=== PATIENT | female | born 1965 | race Hispanic/Latino ===

== ENCOUNTER 2021-10-27 20:56 | Emergency (ER) | payer OTHER, SELFPAY ==
--- OUTSIDE RECORDS SUMMARY | 2021-10-27 20:59 | XMS REPORT | Continuity of Care Document ---
:1965 Author Organization [facility] t Address [address] [place] [address] Care Team Providers Name Role Phone [facility] Attending Clinician Unavailable Physician, Primary or Family Admitting Clinician Unavailabl e Payers Payer Name Policy Type Policy Number Effective Date Expiration Date S ource Problems This patient has no known problems. Allergies, Adverse Reactions, Alerts Allergy Allergy Status Severity Reaction(s) Onset Inactive Treating Comm ents Source Name Type Date Date Clinician No Known DA Active U 2020-0 [facility]04 [facility] 00:00: e 00 [facility] No Known DA Active U 2019-0 [facility] 06[facility]04 [facility] 00:00: e 00 [facility] No Known DA Active U 2018- [facility] All[facility]ie 06-01 [facility] 00:00: e 00 [facility] No Known DA Active U 2018-05 [facility] Allergie 06-01 [facility] 00:00: e 00 [facility] Medications This patient has no known medications. Procedures This patient has no known procedures. Encounters Start End Encounter Admission Attending Care Care Encounter Source Date/Time Date/Time Type Type Clinicians Facility Department ID 2019-06-15 [id number] 00:17:00 [facility] 2019-06-06 Inpatient KENDALL Hernandez [facility] [id number] [facility] 11:30:00 [facility] [id number] [facility] 2019-05-15 Inpatient [facility]ALLORY [facility] [id number] [facility] 00:04:00 [facility] 2019-07-03 2019-07-03 Outpatient MALLORY Hernandez [facility] [id number] [facility] 13:07:00 13:07:00 [facility] [id number] [facility] 2019-05-29 2019-05-29 Outpatient MALLORY Hernandez [facility] [id number] [facility] 12:32:00 12:32:00 [facility] [id number] [facility] 2019-04-15 2019-05-14 Outpatient MALLORY Hernandez [facility] [id number] [facility] 13:30:00 00:00:00 [facility] [id number] [facility] Results Test Description Test Time Test Comments Results Result [facility] e Comments - XR HAND 3 + V RT 2019-05-29 FAX: Y 14:46:00 Juan Hernandez MD [phone] [facility]: St: REG Name: [facility] [place] : 1965 Age/S: 53/F [address] Unit #: [id number] [facility] [address] Phys: Juan Hernandez MD Acct: [id number] Dis Date: Status: REG RCR PHONE #: [phone] Exam Date: 05/29/2019 1311 FAX #: Reason: FRCTURE LEFT METACARPAL EXAMS: CPT CODE: [id number] XR HAND 3 + [place] RT [id number] HISTORY: Fracture of the metacarpal. COMPARISON: X-ray from April 15, 2019. Location: [facility]. 3 views of the right hand: External fixator stabilizing the bases of the fourth and the fifth metacarpal bones. Fracture lines are not visible. Mildly narrowed intercarpal and carpometacarpal and radiocarpal joint spaces. No AVN of the lunate or the scaphoid bones. Carpal arcs are preserved. Narrowed DIP and the PIP joint spaces. IMPRESSION: External fixator stabilizing the base of the fourth and the fifth metacarpal bone with extension into the hamate bone and the base of the third metacarpal bone in good anatomic alignment. Fracture lines are not visible. Narrowed joint spaces. at 1448 Reported and signed by: Preet Rivera M.D. CC: Juan Hernandez MD Technologist: RT EMELINA(R) Trnscrd Date/Time/By: 05/29/2019 (5396) : By: [email or web address] Orig Print D/T: S: 05/29/2019 (3262) PAGE 1 Signed Report - XR HAND 3 + V RT 2019-04-15 FAX: Y 14:33:00 Juan Hernandez MD [phone] [place]: St: REG Name: [facility]ABIL [facility] [place] : 1965 Age/S: 53/F [address] Unit #: [id number] [facility] [address] Phys: Juan Hernandez MD Acct: [id number] Dis Date: Status: REG RCR PHONE #: [phone] Exam Date: 04/15/2019 1410 FAX #: Reason: RIGHT HAND FRACTURE EXAMS: CPT CODE: [id number] XR HAND 3 + V RT [id number] REASON FOR EXAM: RIGHT HAND FRACTURE EXAM ORDER DATE: 04/15/2019 1:54 PM Ordering M.Norm: Juan Hernandez MD PROCEDURE: - XR HAND 3 + V RT Comparison:None FINDINGS: Impression wires transfix the bases of the third through fifth metacarpals as well as the fifth metacarpal base to the hamate. No evidence of hardware failure is seen. The bones are appropriately aligned and no acute fracture is apparent. IMPRESSION: No acute fracture is evident. Bones are appropriately aligned. Diya wires as above without evidence of hardware loosening. Location: [facility] at 1433 Reported and signed by: Jono Parish MD CC: Juan Hernandez MD Technologist: RT Za(R) Trnscrd Date/Time/By: 04/15/2019 (3712) : By: [email or web address] Orig Print D/T: S: 04/15/2019 (3302) PAGE 1 Signed Report CBC W/AUTO DIFF 2019-04-01 21:42:00 Test Item Value Reference Range Interpretation Comme nts WHITE BLOOD CELL (test code = WBC) 8.8 K/mm3 4.5-12.5 N RED BLOOD CELL (test code = RBC) 3.82 mill/mm3 3.7-5.2 N HEMOGLOBIN (test code = HGB) 11.2 gram/dL 11.5-15.5 L HEMATOCRIT (test code = HCT) 35.8 % 36.0-46.0 L MEAN CELL VOLUME (test code = MCV) 93.7 fL 80-98 N MEAN CELL HGB (test code = MCH) 29.3 picogram 27.0-33.0 N MEAN CELL HGB CONCETRATION (test code = MCHC) 31.3 gram/dL 33.0-36. 0 L RED CELL DISTRIBUTION WIDTH (test code = RDW) 14.7 % 11.6-16. 2 N RED CELL DISTRIBUTION WIDTH SD (test code = RDW-SD) 50.8 fL 37 .0-51.0 N PLATELET COUNT (test code = PLT) 249 K/mm3 150-450 N MEAN PLATELET VOLUME (test code = MPV) 10.1 fL 6.7-11.0 N NEUTROPHIL % (test code = NT%) 77.0 % 39.0-69.0 H IMMATURE GRANULOCYTE % (test code = IG%) 0.2 % 0.0-5.0 N LYMPHOCYTE % (test code = LY%) 18.1 % 25.0-55.0 L MONOCYTE % (test code = MO%) 3.1 % 0.0-10.0 N EOSINOPHIL % (test code = EO%) 0.9 % 0.0-5.0 N BASOPHIL % (test code = BA%) 0.7 % 0.0-1.0 N NUCLEATED RBC % (test code = NRBC%) 0.0 % 0-0 N NEUTROPHIL # (test code = NT#) 6.79 K/mm3 1.8-7.7 N IMMATURE GRANULOCYTE # (test code = IG#) 0.02 x10 3/uL 0-0.03 N LYMPHOCYTE # (test code = LY#) 1.60 K/mm3 1.0-5.0 N MONOCYTE # (test code = MO#) 0.27 K/mm3 0-0.8 N EOSINOPHIL # (test code = EO#) 0.08 K/mm3 0.0-0.5 N BASOPHIL # (test code = BA#) 0.06 K/mm3 0.0-0.2 N NUCLEATED RBC # (test code = NRBC#) 0.00 K/mm3 0.0-0.1 N MANUAL DIFF REQUIRED (test code = MDIFF) NO NOT DRAWN. PT IS NOW IN OR PER ER CHARGE CESAR.LAB.TN 04/01/19 1812COMPREHENSIVE METABOLIC [id number] 21:38:00 Test Item Value Reference Range Interpretation Comments SODIUM (test code = 139 mmol/L 136-145 N NA) POTASSIUM (test code = 3.8 mmol/L 3.5-5.1 N K) CHLORIDE (test code = 109.0 mmol/L 98-107 H CL) CARBON DIOXIDE (test 26.0 mmol/L 21-32 N code = CO2) ANION GAP (test code = 7.8 10-20 L GAP) GLUCOSE (test code = 133 mg/dL 74-106 H GLU) BLOOD UREA NITROGEN 17 mg/dL 7-18 N (test code = BUN) GLOMERULAR FILTRATION > 60 mL/min >=60 Estima arnulfo GFR by RATE (test code = GFR) using Modified MDRD formula.Chronic kidney disease is defined as [facility] er kidney damageor GFR <60 mL/min/1.73 m2 for >3 months. CREATININE (test code 0.70 mg/dL 0.55-1.02 N Note change in = CREAT) reference range due to change in reagent. BUN/CREATININE RATIO 23.5 10-20 H (test code = BUN/CREA) TOTAL PROTEIN (test 6.7 gram/dL 6.4-8.2 N code = PROT) ALBUMIN (test code = 3.3 g/dL 3.4-5.0 L ALB) GLOBULIN (test code = 3.4 gram/dL 2.7-4.2 N GLOB) ALBUMIN/GLOBULIN RATIO 1.0 0.75-1.50 N (test code = A/G) CALCIUM (test code = 8.0 mg/dL 8.5-10.1 L CA) BILIRUBIN TOTAL (test 0.20 mg/dL 0.0-1.0 N code = BILT) SGOT/AST (test code = 15 IUnit/L 15-37 N AST) SGPT/ALT (test code = 20 IUnit/L 12-78 N ALT) ALKALINE PHOSPHATASE 66 IUnit/L 45-117 N Note change in TOTAL (test code = reference range due ALKP) to change in reagent. NOT DRAWN. PT IS NOW IN OR PER ER CHARGE TEX.LAB.TN 04/01/19 1812COMPREHENSIVE METABOLIC [id number] 21:33:00 Test Item Value Reference Range Interpretation Comments SODIUM (test code = NA) 139 mmol/L 136-145 N POTASSIUM (test code = K) 3.8 mmol/L 3.5-5.1 N CHLORIDE (test code = CL) 109.0 mmol/L 98-107 H CARBON DIOXIDE (test code = CO2) mmol/L 21-32 ANION GAP (test code = GAP) 10-20 GLUCOSE (test code = GLU) mg/dL 74-106 BLOOD UREA NITROGEN (test code = mg/dL 7-18 BUN) GLOMERULAR FILTRATION RATE (test mL/min >=60 code = GFR) CREATININE (test code = CREAT) mg/dL 0.55-1.02 BUN/CREATININE RATIO (test code 10-20 = BUN/CREA) TOTAL PROTEIN (test code = PROT) gram/dL 6.4-8.2 ALBUMIN (test code = ALB) g/dL 3.4-5.0 GLOBULIN (test code = GLOB) gram/dL 2.7-4.2 ALBUMIN/GLOBULIN RATIO (test 0.75-1.50 code = A/G) CALCIUM (test code = CA) mg/dL 8.5-10.1 BILIRUBIN TOTAL (test code = mg/dL 0.0-1.0 BILT) SGOT/AST (test code = AST) IUnit/L 15-37 SGPT/ALT (test code = ALT) IUnit/L 12-78 ALKALINE PHOSPHATASE TOTAL (test IUnit/L 45-117 code = ALKP) NOT DRAWN. PT IS NOW IN OR PER ER CHARGE TEX.LAB.SC 04/01/19 9074
[2021-10-27] MEDS ORDERED: MORPHINE 4 MG/ML SYR ONE (22:55)
[2021-10-28 00:17] LABS: Absolute Lymphocytes (CBC) 2.2 K/uL (0.7-4.9); Hematocrit 42.1 % (36.0-45.0); Lymphocytes % 25.1 % (15.3-44.8); MPV 8.2 fL (7.6-11.3); RBC Red Blood Cell Count 4.74 M/uL (3.86-4.86)
[2021-10-28 00:20] LABS: Potassium 3.7 mmol/L (3.5-5.1)
--- NOTE | 2021-10-28 02:00 | EDPHYS ---
Physician Documentation [facility] Name: Varsha Smith Age: 55 yrs Sex: Female : 1965 Arrival Date: 10/27/2021 Time: 21:01 Bed 14 Private MD: ED Physician Jarocho Martell HPI: 10/27 22:45 This 55 yrs old Female presents to ER via Wheelchair with complaints of Fall cp Injury. 22:45 Details of fall: The patient fell from an upright position, while walking, and struck a cp tile surface. Onset: The symptoms/episode began/occurred just prior to arrival. Associated injuries: The patient sustained upper back injury, pain, pain with movement, injury to the low back, pain, pain with movement. 22:45 Patient reports slip and fall while exiting shower causing her to fall and strike back cp against tile step. Historical: - Allergies: 21:13 No Known Allergies; vc1 - Home Meds: 21:13 None [Active]; vc1 - PMHx: 21:13 None; vc1 - PSHx: 21:13 Ligation of fallopian tube; vc1 - Immunization history:: Adult Immunizations up to date, Client reports receiving the 2nd dose of the Covid vaccine. - Social history:: Smoking status: Patient denies any tobacco usage or history of. Patient/guardian denies using alcohol. ROS: 22:50 Constitutional: Negative for body aches, chills, fever, poor PO intake. cp 22:50 Eyes: Negative for injury, pain, redness, and discharge. cp 22:50 ENT: Negative for drainage from ear(s), ear pain, sore throat, difficulty swallowing, difficulty handling secretions. 22:50 Neck: Negative for pain with movement, pain at rest, stiffness. 22:50 Cardiovascular: Negative for chest pain, palpitations. 22:50 Respiratory: Negative for cough, shortness of breath, wheezing. 22:50 Abdomen/GI: Negative for abdominal pain, nausea, vomiting, and diarrhea, constipation, bowel incontinence. 22:50 Back: Positive for pain at rest, pain with movement, of the thoracic area and lumbar area. 22:50 : Negative for urinary symptoms, difficulty urinating, bladder incontinence. 22:50 Skin: Negative for cellulitis, rash. 22:50 Neuro: Negative for altered mental status, dizziness, headache, loss of consciousness, numbness, syncope, weakness. 22:50 All other systems are negative. Exam: 22:55 Constitutional: The patient appears in no acute distress, alert, awake, cp non-diaphoretic, non-toxic, well developed, well nourished, in obvious pain, uncomfortable. 22:55 Head/Face: Normocephalic, atraumatic. cp 22:55 Eyes: Periorbital structures: appear normal, Conjunctiva: normal, no exudate, no injection, Sclera: no appreciated abnormality, Lids and lashes: appear normal, bilaterally. 22:55 ENT: External ear(s): are unremarkable, Nose: is normal, Mouth: Lips: moist, Oral mucosa: moist, Posterior pharynx: Airway: no evidence of obstruction, patent. 22:55 Neck: C-spine: vertebral tenderness, is not appreciated, crepitus, is not appreciated, ROM/movement: is normal, is supple, without pain, no range of motions limitations, no nuchal rigidity. 22:55 Chest/axilla: Inspection: normal. 22:55 Cardiovascular: Rate: normal, Rhythm: regular, Edema: is not appreciated, JVD: is not appreciated. 22:55 Respiratory: the patient does not display signs of respiratory distress, Respirations: normal, no use of accessory muscles, no retractions, labored breathing, is not present, Breath sounds: are clear throughout, no decreased breath sounds, no stridor, no wheezing. 22:55 Abdomen/GI: Inspection: abdomen appears normal, Bowel sounds: active, all quadrants, Palpation: abdomen is soft and non-tender, in all quadrants. 22:55 Back: pain, that is severe, of the thoracic area and lumbar area, ROM is painful, with all movement, Straight leg raises: of both lower extremities does not illicit pain, gross exam of back negative for gross swelling, gross ecchymosis and/or hematoma. 22:55 Skin: no rash present. 22:55 Neuro: Orientation: to person, place \T\ time. Mentation: is normal, Motor: moves all fours, strength is normal, Sensation: is normal. Vital Signs: 21:13 BP 152 / 79; Pulse 72; Resp 16; Temp 97.5; Pulse Ox 98% on R/A; Weight 70.76 kg; Height vc1 5 ft. 0 in. (152.40 cm); Pain 10/10; 21:18 BP 152 / 79; Pulse 72; Resp 16; Pulse Ox 98% ; vc1 22:00 BP 143 / 76; Pulse 66; Resp 18; Pulse Ox 100% on R/A; lp1 23:00 BP 127 / 80; Pulse 65; Resp 18; Pulse Ox 100% on R/A; lp1 10/28 00:00 BP 137 / 83; Pulse 58; Resp 16; Pulse Ox 100% on R/A; lp1 01:44 BP 122 / 60; Pulse 56; Resp 16; Pulse Ox 100% on R/A; lp1 02:30 BP 123 / 73; Pulse 59; Resp 18; Pulse Ox 100% on R/A; Pain 7/10; lp1 10/27 21:13 Body Mass Index 30.47 (70.76 kg, 152.40 cm) vc1 MDM: 10/27 21:52 Patient medically screened. [facility] 10/28 01:59 Data reviewed: vital signs, nurses notes, lab test result(s), radiologic studies, CT cp scan. 01:59 Differential diagnosis: contusion, fracture, multiple trauma. Counseling: I had a cp detailed discussion with the patient and/or guardian regarding: the historical points, exam findings, and any diagnostic results supporting the discharge/admit diagnosis, lab results, radiology results, the need for outpatient follow up, a family practitioner, to return to the emergency department if symptoms worsen or persist or if there are any questions or concerns that arise at home. Response to treatment: the patient's symptoms have mildly improved after treatment, and as a result, I will discharge patient. 10/27 22:36 Order name: Basic Metabolic Panel; Complete Time: 01:19 10/28 01:19 Interpretation: Normal except: NA 135. 10/27 22:36 Order name: CBC with Diff; Complete Time: 01:19 10/28 01:19 Interpretation: Normal except: RDW 16.6. 10/27 22:36 Order name: Type And Screen; Complete Time: 01:19 10/27 22:36 Order name: CT Traumagram (Head C Spine CAP W Con) 10/27 22:36 Order name: Labs collected and sent; Complete Time: 00:16 cp Administered Medications: 10/27 23:45 Drug: morphine 2 mg Route: IVP; Infused Over: 4 mins; Site: right antecubital; lp1 10/28 02:29 Drug: morphine 2 mg Route: IVP; Infused Over: 4 mins; Site: right antecubital; lp1 02:51 Follow up: Response: Pain is decreased lp1 02:29 Drug: Lidoderm Patch 5 % (700 mg/patch) 1 patches {Note: Mid back.} Route: Topical; lp1 Site: affected area; 02:51 Not Given (Given Morphine IV with relieff): fentaNYL (PF) 25 mcg IVP once lp1 Disposition Summary: 10/28/21 01:59 Discharge Ordered Location: Home cp Problem: new cp Symptoms: have improved cp Condition: Stable cp Diagnosis - Contusion of lower back and pelvis cp - Fall on same level from slipping, tripping and stumbling with subsequent striking cp against object Followup: cp - With: Private Physician - When: 1 - 2 days - Reason: Recheck today's complaints Discharge Instructions: - Discharge Summary Sheet cp - Acute Back Pain, Adult cp - Contusion cp - Back Exercises cp - Form - Excuse from Work, School, or Physical Activity cp Forms: - Medication Reconciliation Form cp - Thank You Letter cp - Antibiotic Education cp - Prescription Opioid Use cp - Work release form lp1 Prescriptions: - Lidoderm 5 % Topical adhesive patch,medicated - apply 1 patch by TOPICAL route once daily; 15 patch; Refills: 0, Product cp Selection Permitted - Cyclobenzaprine 10 mg Oral Tablet - take 1 tablet by ORAL route every 8 hours As needed; 20 tablet; Refills: 0, cp Product Selection Permitted - Diclofenac Sodium 75 mg Oral tablet,delayed release (DR/EC) - take 1 tablet by ORAL route 2 times per day; 20 tablet; Refills: 0, Product cp Selection Permitted - Tylenol-Codeine #3 300 mg-30 mg Oral - take 2 tablet by ORAL route every 8-10 hours; 12 tablet; Refills: 0, Product cp Selection Permitted Addendum: 10/29/2021 08:35 Co-signature as Attending Physician, Jarocho Martell MD I agree with the assessment and c murillo plan of care. Signatures: Dispatcher [employer] Jarocho Jain MD MD cha Pena, Laura RN RN lp1 Jarocho Whitney PA PA cp Abbie Morrissey, RN RN vc1 Corrections: (The following items were deleted from the chart) 10/28 17:04 10/27 22:55 Back: pain, that is severe, of the thoracic area and lumbar area, ROM is cp painful, with all movement, Straight leg raises: of both lower extremities does not illicit pain, cp
--- NOTE | 2021-10-28 02:00 | ER ---
Nurse's Notes [facility] Name: Varsha Smith Age: 55 yrs Sex: Female : 1965 Arrival Date: 10/27/2021 Time: 21:01 Bed 14 Private MD: Diagnosis: Contusion of lower back and pelvis;Fall on same level from slipping, tripping and stumbling with subsequent striking against object Presentation: 10/27 21:10 Chief complaint: Patient states: "I fell when I was trying to get out of the shower and vc1 hit my back on the edge of the step and I had pain shoot to my right butt cheek.". Coronavirus screen: Vaccine status:. Coronavirus screen: Vaccine status: Patient reports receiving the 2nd dose of the covid vaccine. Pfizer plus one booster At this time, the client does not indicate any symptoms associated with coronavirus-19. Ebola Screen: No symptoms or risks identified at this time. Onset of symptoms was October 27, 2021 at 19:20. 21:10 Method Of Arrival: Wheelchair vc1 21:10 Acuity: [place] 4 vc1 21:18 Initial Sepsis Screen: Does the patient meet any 2 criteria? No. Patient's initial vc1 sepsis screen is negative. Does the patient have a suspected source of infection? No. Patient's initial sepsis screen is negative. Risk Assessment: Do you want to hurt yourself or someone else? Patient reports no desire to harm self or others. Triage Assessment: 21:13 General: Appears in no apparent distress. uncomfortable, Behavior is calm, cooperative, vc1 appropriate for age. Pain: Pain radiates to mid back area Pain currently is 0 out of 10 on a pain scale. at worst was 10 out of 10 on a pain scale. Alleviated by rest, Aggravated by increased activity, repositioning. Neuro: Level of Consciousness is awake, alert, obeys commands, Oriented to person, place, time, situation, Appropriate for age. Cardiovascular: No deficits noted. Respiratory: Airway is patent Respiratory effort is even, unlabored, Respiratory pattern is regular, symmetrical. GI: No deficits noted. : No deficits noted. Derm: No deficits noted. Musculoskeletal: Reports weakness in right leg. Historical: - Allergies: 21:13 No Known Allergies; vc1 - Home Meds: 21:13 None [Active]; vc1 - PMHx: 21:13 None; vc1 - PSHx: 21:13 Ligation of fallopian tube; vc1 - Immunization history:: Adult Immunizations up to date, Client reports receiving the 2nd dose of the Covid vaccine. - Social history:: Smoking status: Patient denies any tobacco usage or history of. Patient/guardian denies using alcohol. Screenin/16 00:18 Abuse screen: Denies threats or abuse. Denies injuries from another. Nutritional lp1 screening: No deficits noted. Tuberculosis screening: No symptoms or risk factors identified. Fall Risk None identified. Assessment: 10/27 23:10 Reassessment: Son helping patient to bathroom at this time. lp1 23:15 General: Appears uncomfortable, Behavior is appropriate for age. Pain: Complains of lp1 pain in lumbar area Pain currently is 10 out of 10 on a pain scale. Quality of pain is described as sharp, Pain began suddenly, Aggravated by increased activity, repositioning. Neuro: Level of Consciousness is awake, alert, obeys commands, Oriented to person, place, time, situation, Gait is steady, Intact. Cardiovascular: Patient's skin is warm and dry. Respiratory: Respiratory effort is even, unlabored. GI: No signs and/or symptoms were reported involving the gastrointestinal system. : No signs and/or symptoms were reported regarding the genitourinary system. EENT: No signs and/or symptoms were reported regarding the EENT system. Derm: Skin is pink, warm \\T\\ dry. Musculoskeletal: Circulation, motion, and sensation intact. Reports pain in lumbar area with increased movement. 10/28 00:28 Reassessment: Patient reports pain relief at this time after Morphine 2mg IV lp1 administered, will continue to monitor. 01:43 Reassessment: Patient appears in no apparent distress at this time. Patient resting, lp1 eyes closed, reports comfort at this time; warm blanket given. 02:25 Reassessment: Patient aware of discharge, requesting to have 2nd half of Morphine prior lp1 to discharge, son at bedside to drive patient home. 02:51 Reassessment: Patient ambulated to bathroom with assistance from son. lp1 Vital Signs: 10/27 21:13 BP 152 / 79; Pulse 72; Resp 16; Temp 97.5; Pulse Ox 98% on R/A; Weight 70.76 kg; Height vc1 5 ft. 0 in. (152.40 cm); Pain 10/10; 21:18 BP 152 / 79; Pulse 72; Resp 16; Pulse Ox 98% ; vc1 22:00 BP 143 / 76; Pulse 66; Resp 18; Pulse Ox 100% on R/A; lp1 23:00 BP 127 / 80; Pulse 65; Resp 18; Pulse Ox 100% on R/A; lp1 10/28 00:00 BP 137 / 83; Pulse 58; Resp 16; Pulse Ox 100% on R/A; lp1 01:44 BP 122 / 60; Pulse 56; Resp 16; Pulse Ox 100% on R/A; lp1 02:30 BP 123 / 73; Pulse 59; Resp 18; Pulse Ox 100% on R/A; Pain 7/10; lp1 06 21:13 Body Mass Index 30.47 (70.76 kg, 152.40 cm) vc1 ED Course: 10/27 21:01 Patient arrived in ED. ja2 21:13 Triage completed. vc1 21:18 Arm band placed on right wrist. vc1 21:35 Frannie James, ANDREI is Primary Nurse. lp1 21:51 Jarocho Whitney PA is PHCP. cp 21:51 Jarocho Martell MD is Attending Physician. cp 23:40 Patient has correct armband on for positive identification. Placed in gown. Pulse ox lp1 on. NIBP on. 23:45 Inserted saline lock: 20 gauge in right antecubital area, using aseptic technique. lp1 Blood collected. 10/28 01:02 CT Traumagram (Head C Spine CAP W Con) In Process Unspecified. EDMS 01:44 No provider procedures requiring assistance completed. lp1 02:47 IV discontinued, No redness/swelling at site. Pressure dressing applied. lp1 Administered Medications: 10/27 23:45 Drug: morphine 2 mg Route: IVP; Infused Over: 4 mins; Site: right antecubital; lp1 10/28 02:29 Drug: morphine 2 mg Route: IVP; Infused Over: 4 mins; Site: right antecubital; lp1 02:51 Follow up: Response: Pain is decreased lp1 02:29 Drug: Lidoderm Patch 5 % (700 mg/patch) 1 patches {Note: Mid back.} Route: Topical; lp1 Site: affected area; 02:51 Not Given (Given Morphine IV with relieff): fentaNYL (PF) 25 mcg IVP once lp1 Medication: 00:18 VIS not applicable for this client. lp1 Outcome: 01:59 Discharge ordered by . amanda 02:51 Patient left the ED. lp1 Signatures: Dispatcher [employer] EDMS Frannie James RN RN lp1 Jarocho Whitney PA PA cp Alexander, Jessica ja2 Calcote, Vanessa, RN RN vc1
[2021-10-28] MEDS ORDERED: LIDOCAINE 4% PATCH ONE (02:20)
[2021-10-28 03:43] VITALS: TEMP 97.5
[2021-10-28 03:46] VITALS: O2SAT 100
[2021-10-28 03:53] VITALS: BP 123/73
--- NOTE | 2021-10-28 15:07 | RAD REPORT ---
EXAM DESCRIPTION: CT HEAD C-SPINE WITHOUT CHEST ABDOMEN PELVIS WITH IV CONTRAST CLINICAL HISTORY: Fall COMPARISON: None. TECHNIQUE: CT HEAD C-SPINE WITHOUT CHEST ABDOMEN PELVIS WITH IV CONTRAST on 10/27/2021 10:36 PM CDT This exam was performed according to our departmental dose-optimization program, which includes autom ated exposure control, adjustment of the mA and/or kV according to patient size and/or use of iterati ve reconstruction technique. FINDINGS: Brain: There is no acute hemorrhage, mass effect or midline shift. Pérez-white differentiat ion is preserved. There is no hydrocephalus. There is no significant volume loss for age. The calvarium is intact. Orbits and globes are unremarkable. There is mild thickening of the left max illary sinus. Mastoid air cells are clear. Cervical Spine: There is no acute fracture. Alignment is anatomic. Disc spaces are maintained. Vertebral body heights are preserved. Soft tissues are unremarkable. Vascular: Thoracic aorta is normal in course and caliber without aneurysm or dissection. Pulmonary ar teries are adequately opacified without acute or chronic filling defects. Abdominal aorta is normal i n course and caliber without aneurysm. Pelvic arteries are patent without aneurysm or occlusion. Chest: The heart is normal in size. There is no pericardial effusion. Intrathoracic lymph nodes are n ot enlarged. There is no pleural effusion, pleural thickening or pneumothorax. Central airways are patent. Lungs a re clear with no consolidation, mass or interstitial lung disease. Abdomen: The liver is normal in appearance. There is no biliary dilatation. Gallbladder is normal in appearance. There is a small fat-containing supraumbilical ventral hernia. The pancreas and spleen ar e normal in appearance. The adrenal glands and kidneys are unremarkable. There is no free air. There is no retroperitoneal adenopathy. Pelvis: There is no bowel obstruction. Urinary bladder is unremarkable. There is no free fluid. Uteru s is normal in size. Appendix is normal. Skeleton: There are no acute osseous findings. No suspicious bony lesions. IMPRESSION: No definite acute posttraumatic findings. Electronically signed by: Daniel Bennett MD 10/28/2021 1:39 AM CDT Due to temporary technical issues with the PACS/Fluency reporting system, reports are being signed by the in house radiologists without review as a courtesy to insure prompt reporting. The interpreting radiologist is fully responsible for the content of the report.
== END 2021-10-28 02:51 | disposition home or self-care (01) ==
LOC: ER 20:56
DX: S30.0XXA Contusion of lower back and pelvis, initial encounter (principal); W01.198A Fall on same level from slipping, tripping and stumbling with subsequent striking against other object, initial encounter
CPT/HCPCS: 36415; 70450; 71260; 72125; 74177; 80048; 85025; 86850; 86900; 86901; 96374; 99284; J2001; Q9967